=== PATIENT | female | born 1980 | race Caucasian/White ===

== ENCOUNTER 2024-03-29 10:53 | Observation (INO) | payer OTHER, SELFPAY ==
[2024-03-29] VITALS (17 sets, daily range): BP systolic 167–210; BP diastolic 78–116; PULSE 65–95; RESP 16–18; TEMP 36.6–37.1; O2SAT 81–100; BMI 29.2
--- NOTE | 2024-03-29 11:23 | EKG_ITS ---
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
[2024-03-29] MEDS: ONDANSETRON 4 MG/2 ML INJ IV ×4 (11:27→20:53)
[2024-03-29 11:34] LABS: Add Manual Diff / Slide Review NO; Basophils Absolute Auto 100 /uL (0-100); Basophils Percent Auto 0.3 % (0-2); Eosinophils Absolute Auto 0 /uL (0-450); Eosinophils Percent Auto 0.1 % (2-4); Hematocrit 43.7 % (36-46); Hemoglobin 15.7 g/dL (12.0-16.0); Lymphocytes Absolute Auto 1200 /uL (1100-4500); Lymphocytes Percent Auto 7.1 % (25-40); Mean Corpuscular HGB Conc 35.9 % (30-36); Mean Corpuscular Volume 89.3 fL (80-100); Monocytes Absolute Auto 900 /uL (0-900); Monocytes Percent Auto 5.1 % (3-14); Neutrophils Absolute Auto 15300 /uL (1500-7000); Neutrophils Percent Auto 87.4 % (50-75); Platelet Count 252 X10^3/uL (150-400); Red Cell Distribution Width 12.6 % (11.6-14.8); White Blood Cell Count 17.5 X10^3/uL (4.5-11.0)
[2024-03-29 11:45] LABS: Alanine Aminotransferase 24 IU/L (<35); Albumin 4.5 g/dL (3.5-5.0); Albumin Globulin Ratio 1.3 (1.0-2.8); Alkaline Phosphatase 78 U/L (38-126); Aspartate Aminotransferase 28 IU/L (14-36); Bilirubin Total 0.7 mg/dL (0.2-1.3); Blood Urea Nitrogen 12 mg/dL (7-17); Calcium 9.6 mg/dL (8.4-10.2); Carbon Dioxide 24 mmol/L (22-32); Chloride 101 mmol/L (98-107); Estimated Glomerular Filt Rate > 60 mL/min (>60); Globulin 3.5 g/dL (1.7-4.1); Glucose 109 mg/dL (70-100); HEMOLYSIS < 15 (0-50); Lipase 61 U/L (23-300); Sodium 134 mmol/L (137-145)
[2024-03-29 12:44] LABS: Urine Volume 10mL (spun)
[2024-03-29 12:47] LABS: Bacteria Urine None Seen; Culture Indicated Urine Cult Not Indicated; RBC Urine 1-5/HPF (0-5/HPF); Squamous Epithelial Cell Urine 0-1 /HPF (0-5/HPF); WBC Urine 0-1/HPF (0-5/HPF)
--- NOTE | 2024-03-29 13:47 | ED.GENADULT ---
HPI - General Adult General Chief complaint: Abdominal Pain Stated complaint: Left Upper Stomach pain Time Seen by Provider: 03/29/24 13:05 Source: patient and family Mode of arrival: Wheelchair History of Present Illness HPI narrative: 43-year-old woman who was born with ambiguous genitalia has chosen to be a woman is on estrogen and progesterone, does not have reproductive organs, ADD and autism presents with severe abdominal pain that is started around midnight last night. She lives on [facility]. Came over this morning and is complaining that movement, deep breathing is quite painful. She has not been able to keep any water down there has been no blood in her vomitus. She has not having diarrhea but is passing gas. She has not complaining of chest pain or palpitations. No headache and not noting fevers Related Data Home Medications Medication Instructions Recorded Confirmed dextroamphetamine-amphetamine 5 mg mg PO BID 03/29/24 tablet (Adderall) estradiol 1 mg-progesterone 100 mg 1 cap PO QPM 03/29/24 03/29/24 capsule estradiol 4 mcg vaginal insert, in 4 mcg vaginal BID 03/29/24 03/29/24 a starter dose pack loratadine 5 mg-pseudoephedrine ER 1 tab PO Q12H 03/29/24 03/29/24 120 mg tablet,extended release,12hr (Claritin-D 12 Hour) Allergies Allergy/AdvReac Type Severity Reaction Status Date / Time codeine Allergy Rash Verified 03/29/24 11:12 Histamine H2 Inhibitors AdvReac Verified 03/29/24 11:12 Review of Systems Review of Systems Narrative: Pertinent positive and negative findings as per HPI Patient History Social History Smoking Status: Never smoker Smoking Status: Never smoker alcohol intake frequency: other Substance Use Type: marijuana Exam Initial Vital Signs Initial Vital Signs: Vital Signs Temperature 98 F 03/29/24 11:00 Pulse Rate 94 H 03/29/24 11:00 Respiratory Rate 17 03/29/24 11:00 Blood Pressure 200/115 H 03/29/24 11:00 Pulse Oximetry 100 03/29/24 11:00 Oxygen Delivery Method Room Air 03/29/24 11:00 General: Significant abdominal pain but Able to give a complete and coherent history. Well-nourished well-developed HEENT: Moist mucous membranes, normal sclera with reactive pupils, Respiratory: Lungs are clear to auscultation, no wheezing no rales no rhonchi. Full and symmetrical air movement Cardiac: Regular rate and rhythm no murmurs no bruits Abdomen: Soft, she is having waves of severe pain however she does not have rebound or guarding and palpation is minimally painful for her Skin: Pale, Warm and dry, no rashes Neurologic: Grossly neurologically intact with no obvious asymmetries or abnormalities Extremities: No trauma, well perfused Psych: Cooperative, appropriate insight and affect Course Orders Ordered: ED Orders 03/29/24 11:15 EKG-12 Lead Stat 03/29/24 11:24 Complete Blood Count AUTO DIFF Stat Comprehensive Metabolic Panel Stat Lipase Stat 03/29/24 12:02 Urine Microscopic Stat 03/29/24 14:00 CT abdomen pelvis w con Stat Hydromorphone HCl (Hydromorphone 0.5 Mg Inj) 0.5 mg IV Q15MIN PRN PRN Reason: Pain, Last Admin: 03/29/24 16:43 Dose: 0.5 mg Documented By: FABBY Ondansetron HCl (Ondansetron 4 Mg/2 Ml Inj) 4 mg IV NOW PRN PRN Reason: Nausea And Vomiting Last Admin: 03/29/24 11:27 Dose: 4 mg Documented By: JAIRO Ondansetron HCl (Ondansetron 4 Mg Odt) 4 mg PO NOW PRN PRN Reason: Nausea And Vomiting Discontinued Medications Hydromorphone HCl (Hydromorphone 1 Mg Inj) 1 mg IV NOW ONE Stop: 03/29/24 14:01 Last Admin: 03/29/24 14:11 Dose: 1 mg Documented By: FABBY Sodium Chloride (Normal Saline 0.9%) 1,000 mls @ 1,000 mls/hr IV BOLUS ONE Stop: 03/29/24 14:59 Last Infusion: 03/29/24 15:22 Dose: Infused Documented By: Admin: 03/29/24 14:13 Dose: 1,000 mls/hr Documented By: FABBY Ondansetron HCl (Ondansetron 4 Mg/2 Ml Inj) 4 mg IV NOW ONE Stop: 03/29/24 14:01 Last Admin: 03/29/24 14:12 Dose: 4 mg Documented By: FABBY Vital Signs Vital signs: Vital Signs - 8 hr 03/29/24 11:00 03/29/24 12:37 03/29/24 12:38 Temperature 98 F Pulse Rate 94 H 74 73 Respiratory Rate 17 Blood Pressure 200/115 H Pulse Oximetry 100 100 100 Oxygen Delivery Method Room Air 03/29/24 12:38 03/29/24 13:00 03/29/24 13:00 Temperature Pulse Rate 79 Respiratory Rate Blood Pressure 204/103 H 210/115 H Pulse Oximetry 99 Oxygen Delivery Method 03/29/24 13:30 03/29/24 13:30 03/29/24 14:00 Temperature Pulse Rate 65 94 H Respiratory Rate Blood Pressure 194/116 H Pulse Oximetry 96 100 Oxygen Delivery Method 03/29/24 14:00 03/29/24 14:15 03/29/24 14:15 Temperature Pulse Rate 85 Respiratory Rate Blood Pressure 190/100 H 185/98 H Pulse Oximetry 81 L Oxygen Delivery Method 03/29/24 14:30 03/29/24 14:30 03/29/24 15:00 Temperature Pulse Rate 81 79 Respiratory Rate Blood Pressure 182/100 H Pulse Oximetry 95 97 Oxygen Delivery Method 03/29/24 15:00 Temperature Pulse Rate Respiratory Rate Blood Pressure 190/108 H Pulse Oximetry Oxygen Delivery Method Medical Decision Making Lab Data 03/29/24 11:24 03/29/24 11:24 Labs: Lab Results 03/29/24 03/29/24 Range/Units 11:24 12:02 WBC 17.5 H (4.5-11.0) X10^3/uL RBC 4.90 (4.0-5.2) X10^6/uL Hgb 15.7 (12.0-16.0) g/dL Hct 43.7 (36-46) % MCV 89.3 (80-100) fL MCH 32.0 (26-34) PG MCHC 35.9 (30-36) % RDW 12.6 (11.6-14.8) % Plt Count 252 (150-400) X10^3/uL Neut % (Auto) 87.4 H (50-75) % Lymph % (Auto) 7.1 L (25-40) % [place] % (Auto) 5.1 (3-14) % Eos % (Auto) 0.1 L (2-4) % Baso % (Auto) 0.3 (0-2) % Neut # (Auto) 50190 H (3848-9330) /uL Lymph # (Auto) 1200 (8168-7837) /uL [place] # (Auto) 900 (0-900) /uL Eos # (Auto) 0 (0-450) /uL Baso # (Auto) 100 (0-100) /uL Sodium 134 L (137-145) mmol/L Potassium 4.0 (3.4-5.1) mmol/L Chloride 101 (98-107) mmol/L Carbon Dioxide 24 (22-32) mmol/L BUN 12 (7-17) mg/dL Creatinine 0.63 (0.52-1.04) mg/dL Estimated GFR > 60 (>60) mL/min BUN/Creatinine Ratio 19.0 (6-22) Glucose 109 H (70-100) mg/dL Calcium 9.6 (8.4-10.2) mg/dL Total Bilirubin 0.7 (0.2-1.3) mg/dL AST 28 (14-36) IU/L ALT 24 (<35) IU/L Alkaline Phosphatase 78 (38-126) U/L Total Protein 8.0 (6.3-8.2) g/dL Albumin 4.5 (3.5-5.0) g/dL Globulin 3.5 (1.7-4.1) g/dL Albumin/Globulin Ratio 1.3 (1.0-2.8) Lipase 61 (23-300) U/L Urine RBC 1-5/hpf (0-5/HPF) Urine WBC 0-1/hpf (0-5/HPF) Ur Squamous Epith Cells 0-1 /hpf (0-5/HPF) Urine Bacteria None seen (None) Ur Culture Indicated? Cult not indicated Vol Urine Centrifuged 10ml (spun) Point of Care Testing Test Results Negative Urine Dip Bedside Urine Glucose Negative Bedside Urine Bilirubin - Negative Bedside Urine Ketone +/- 5 Urine Specific [place] 1.015 Bedside Urine Occult Blood +/- Bedside Urine pH 6.0 Bedside Urine Protein ++ 100 Bedside Urine Urobilinogen - Negative Bedside Urine Nitrite - Negative Bedside Urine Leukocytes - Negative Esterase Point of care testing: Point of Care Testing Test Results Negative Urine Dip Bedside Urine Glucose Negative Bedside Urine Bilirubin - Negative Bedside Urine Ketone +/- 5 Urine Specific [place] 1.015 Bedside Urine Occult Blood +/- Bedside Urine pH 6.0 Bedside Urine Protein ++ 100 Bedside Urine Urobilinogen - Negative Bedside Urine Nitrite - Negative Bedside Urine Leukocytes - Negative Esterase Imaging Data CT scan - abdomen/pelvis: Radiologist's Impression: PROCEDURE: CT ABDOMEN PELVIS W CON INDICATIONS: abdominal pain and leukocytosis TECHNIQUE: After the administration of intravenous contrast, axial sections acquired from the lung bases to the pubic symphysis. Coronal and sagittal reformats were performed. For radiation dose reduction, the following was used: automated exposure control, adjustment of mA and/or kV according to patient size. COMPARISON: None. FINDINGS: Image quality: Diagnostic. Lower Chest: 3 mm solid nodule in the lateral right lower lobe (series 3, image 9). ABDOMEN: Liver: No solid mass. Gallbladder: Cholelithiasis. Focal wall thickening period pericolonic fat stranding and fluid. Biliary ducts: No biliary dilation. Pancreas: No ductal dilation. Spleen: Size is within normal limits. Adrenal Glands: No adrenal nodules. Kidneys and Ureters: No hydronephrosis. No solid mass. No complex renal cystic lesion which requires follow up. Stomach and Bowel: Normal colonic caliber, without significant wall thickening. Peritoneum: No abnormal intraperitoneal fluid. No free air. Ventral Wall: No significant ventral hernia. Abdominal Nodes: No retroperitoneal or mesenteric adenopathy by size criteria. Vessels: Aorta and inferior vena cava are normal in size. PELVIS: Pelvic Organs: Unremarkable. Bladder: No bladder wall thickening, accounting for underdistention. Pelvic Nodes: No enlarged lymph nodes. Miscellaneous: No inguinal hernias are seen. Bones: No aggressive osseous abnormality. Moderate disc bulge at L4-5, without significant spinal canal narrowing. IMPRESSION: Acute cholecystitis. No evidence of choledocholithiasis. 3 mm solid nodule in the lateral right lower lobe. Consider 12 month follow-up if this patient is at high risk for developing lung cancer. Dictated by: Duc Garza M.D. on 03/29/2024 at 15:25 MDM Narrative Medical decision making narrative: CC: Abdominal pain increasing since midnight last night Complicating co-morbidities: No reproductive organs, on hormone replacement therapy, has never had abdominal surgeries Data collected from: patient, Social determinants of health that may influence the patients condition: Lives on [facility] Differential considered: Gallbladder disease, perforated viscus, ruptured appendix, diverticulitis given lack of uterus ovaries and vagina not concerned with obstetrics and gynecology professor etiology Exam documented above, pertinent findings include: Significant pain behaviors in waves, bili is actually moderately soft and pain is not reproduced with palpation Lab Test results independently reviewed as above. Pertinent findings: CBC shows leukocytosis at 17.5 with 87.4 neutrophils. No anemia Chemistries are unremarkable Independently reviewed EKG: Sinus rhythm at a rate of 85. Nonspecific STT wave changes. She does have a right bundle branch block Imaging studies independently reviewed: CT scan suggests acute cholecystitis without choledocholithiasis Consultations: Dr. Obregon, general surgery Treatments: Fluids, Dilaudid, Zofran Discussion: 43-year-old woman with a week of mild intermittent upper abdominal symptoms and since midnight last night has had severe abdominal pain coming in waves. Mild leukocytosis at 17.5 87% neutrophils, CT scan suggest acute cholecystitis without choledocholithiasis. In discussion with Dr. Obregon, she will be started on Zosyn, admitted to the hospital with anticipation of surgical intervention tomorrow. Findings reviewed with the patient and her , they understand, agree and questions have been answered Discharge Plan Departure Patient Disposition: Admitted as Observation Clinical Impression: Cholecystitis Prescriptions: No Action Claritin-D 12 Hour 5-120 mg Tablet Extended Release 12 Hr 1 tab PO Q12H dextroamphetamine-amphetamine [Adderall] 5 mg Tablet PO BID Rx Instructions: administer doses at least 4-6 hours apart estradiol 4 mcg Insert, Dose Pack 4 mcg VAGINAL BID estradiol-progesterone 1-100 mg Capsule 1 cap PO QPM
--- NOTE | 2024-03-29 14:00 | DI.CT.S_ITS ---
PROCEDURE: CT ABDOMEN PELVIS W CON INDICATIONS: abdominal pain and leukocytosis TECHNIQUE: After the administration of intravenous contrast, axial sections acquired from the lung bases to the pubic symphysis. Coronal and sagittal reformats were performed. For radiation dose reduction, the following was used: automated exposure control, adjustment of mA and/or kV according to patient size. COMPARISON: None. FINDINGS: Image quality: Diagnostic. Lower Chest: 3 mm solid nodule in the lateral right lower lobe (series 3, image 9). ABDOMEN: Liver: No solid mass. Gallbladder: Cholelithiasis. Focal wall thickening period pericolonic fat stranding and fluid. Biliary ducts: No biliary dilation. Pancreas: No ductal dilation. Spleen: Size is within normal limits. Adrenal Glands: No adrenal nodules. Kidneys and Ureters: No hydronephrosis. No solid mass. No complex renal cystic lesion which requires follow up. Stomach and Bowel: Normal colonic caliber, without significant wall thickening. Peritoneum: No abnormal intraperitoneal fluid. No free air. Ventral Wall: No significant ventral hernia. Abdominal Nodes: No retroperitoneal or mesenteric adenopathy by size criteria. Vessels: Aorta and inferior vena cava are normal in size. PELVIS: Pelvic Organs: Unremarkable. Bladder: No bladder wall thickening, accounting for underdistention. Pelvic Nodes: No enlarged lymph nodes. Miscellaneous: No inguinal hernias are seen. Bones: No aggressive osseous abnormality. Moderate disc bulge at L4-5, without significant spinal canal narrowing. IMPRESSION: Acute cholecystitis. No evidence of choledocholithiasis. 3 mm solid nodule in the lateral right lower lobe. Consider 12 month follow-up if this patient is at high risk for developing lung cancer. Dictated by: Duc Garza M.D. on 03/29/2024 at 15:25 Approved by: Duc Garza M.D. on 03/29/2024 at 15:27
[2024-03-29] MEDS: HYDROMORPHONE 1 MG INJ IV (14:11)
[2024-03-29] MEDS: SODIUM CHLORIDE 0.9% 1,000 ML 1000 ML IV (14:13)
[2024-03-29] MEDS: HYDROMORPHONE 0.5 MG INJ IV ×2 (16:43→21:00)
[2024-03-29] MEDS: SODIUM CHLORIDE 0.9% 1,000 ML 100 ML IV (17:53)
[2024-03-29] MEDS: PIPERACILLIN/TAZO 4.5 GM in SODIUM CHLORIDE 0.9% 100 ML IV (17:53)
[2024-03-29] MEDS: PIPERACILLIN/TAZO 3.375 GM in SODIUM CHLORIDE 0.9% 100 ML IV (22:57)
[2024-03-30] VITALS (9 sets, daily range): BP systolic 148–183; BP diastolic 84–109; PULSE 70–98; RESP 12–19; TEMP 36.5–37.7; O2SAT 95–99
[2024-03-30 06:28] LABS: Add Manual Diff / Slide Review NO; Basophils Absolute Auto 0 /uL (0-100); Basophils Percent Auto 0.2 % (0-2); Eosinophils Absolute Auto 100 /uL (0-450); Eosinophils Percent Auto 0.9 % (2-4); Hematocrit 38.6 % (36-46); Hemoglobin 13.7 g/dL (12.0-16.0); Lymphocytes Absolute Auto 1300 /uL (1100-4500); Lymphocytes Percent Auto 11.2 % (25-40); Mean Corpuscular HGB Conc 35.5 % (30-36); Mean Corpuscular Hemoglobin 31.9 PG (26-34); Monocytes Absolute Auto 1000 /uL (0-900); Monocytes Percent Auto 8.9 % (3-14); Neutrophils Absolute Auto 8800 /uL (1500-7000); Neutrophils Percent Auto 78.8 % (50-75); Platelet Count 188 X10^3/uL (150-400); Red Blood Cell Count 4.29 X10^6/uL (4.0-5.2); Red Cell Distribution Width 12.8 % (11.6-14.8); White Blood Cell Count 11.2 X10^3/uL (4.5-11.0)
[2024-03-30] MEDS: SODIUM CHLORIDE 0.9% 1,000 ML 100 ML IV (06:36)
[2024-03-30] MEDS: PIPERACILLIN/TAZO 3.375 GM in SODIUM CHLORIDE 0.9% 100 ML IV (06:37)
[2024-03-30 06:52] LABS: Alanine Aminotransferase 18 IU/L (<35); Albumin 3.5 g/dL (3.5-5.0); Albumin Globulin Ratio 1.2 (1.0-2.8); Alkaline Phosphatase 55 U/L (38-126); Aspartate Aminotransferase 22 IU/L (14-36); BUN Creatinine Ratio 11.8 (6-22); Bilirubin Total 0.6 mg/dL (0.2-1.3); Blood Urea Nitrogen 9 mg/dL (7-17); Calcium 8.5 mg/dL (8.4-10.2); Carbon Dioxide 27 mmol/L (22-32); Chloride 106 mmol/L (98-107); Estimated Glomerular Filt Rate > 60 mL/min (>60); Globulin 2.9 g/dL (1.7-4.1); Glucose 103 mg/dL (70-100); HEMOLYSIS < 15 (0-50); Potassium 3.8 mmol/L (3.4-5.1); Sodium 135 mmol/L (137-145); Total Protein 6.4 g/dL (6.3-8.2)
[2024-03-30] MEDS: HYDROMORPHONE 0.5 MG INJ IV ×3 (09:03→22:06)
--- NOTE | 2024-03-30 09:36 | PM.HP.1 ---
History of Present Illness History of Present Illness Date Patient Seen: 03/30/24 Time Patient Seen: 09:36 Chief complaint: Left Upper Stomach pain Narrative: Cameron is a 43 year old woman from [facility] who presented to the emergency department yesterday several hours of severe epigastric abdominal pain. She has had similar pain in the past but never as severe as this episode. Her abdominal pain was initially triggered by fatty foods but more recently any type of food would trigger her symptoms. She presented with leukocytosis. A CT scan demonstrated acute cholecystitis. There is a definite calcified gallstone within the gallbladder lumen. Her only prior abdominal surgery was inter-sex surgery for ambiguous genitalia 6 years ago. [facility] Social History household members: significant other Smoking Status: Never smoker alcohol intake: current Meds Home Medications and Allergies Home Medications Medication Instructions Recorded Confirmed Type dextroamphetamine-amphetamine 5 mg 5 mg PO BID 03/29/24 03/29/24 History tablet (Adderall) estradiol 1 mg-progesterone 100 mg 1 cap PO QPM 03/29/24 03/29/24 History capsule estradiol 4 mcg vaginal insert, in 4 mcg vaginal BID 03/29/24 03/29/24 History a starter dose pack loratadine 5 mg-pseudoephedrine ER 1 tab PO Q12H 03/29/24 03/29/24 History 120 mg tablet,extended release,12hr (Claritin-D 12 Hour) Allergies Allergy/AdvReac Type Severity Reaction Status Date / Time codeine Allergy Rash Verified 03/29/24 11:12 Histamine H2 Inhibitors AdvReac Verified 03/29/24 11:12 Exam Vital Signs (past 8 hours): - 03/30/24 08:38 Temperature 98.0 F Pulse Rate 70 Respiratory Rate 18 Blood Pressure 148/84 H Pulse Oximetry 96 Oxygen Flow Rate 0 Oxygen Delivery Method Room Air Oxygen Flow Rate 0 Narrative Exam Narrative: Tender to palpation in the right upper quadrant and epigastrium Objective Labs 03/30/24 06:05 03/30/24 06:05 Labs: Laboratory Results - last 24 hr 03/29/24 03/29/24 03/30/24 11:24 12:02 06:05 WBC 17.5 H 11.2 H RBC 4.90 4.29 Hgb 15.7 13.7 Hct 43.7 38.6 MCV 89.3 90.0 MCH 32.0 31.9 MCHC 35.9 35.5 RDW 12.6 12.8 Plt Count 252 188 Neut % (Auto) 87.4 H 78.8 H Lymph % (Auto) 7.1 L 11.2 L [place] % (Auto) 5.1 8.9 Eos % (Auto) 0.1 L 0.9 L Baso % (Auto) 0.3 0.2 Neut # (Auto) 13761 H 8800 H Lymph # (Auto) 1200 1300 [place] # (Auto) 900 1000 H Eos # (Auto) 0 100 Baso # (Auto) 100 0 Sodium 134 L 135 L Potassium 4.0 3.8 Chloride 101 106 Carbon Dioxide 24 27 BUN 12 9 Creatinine 0.63 0.76 Estimated GFR > 60 > 60 BUN/Creatinine Ratio 19.0 11.8 Glucose 109 H 103 H Calcium 9.6 8.5 Total Bilirubin 0.7 0.6 AST 28 22 ALT 24 18 Alkaline Phosphatase 78 55 Total Protein 8.0 6.4 Albumin 4.5 3.5 Globulin 3.5 2.9 Albumin/Globulin Ratio 1.3 1.2 Lipase 61 Urine RBC 1-5/hpf Urine WBC 0-1/hpf Ur Squamous Epith Cells 0-1 /hpf Urine Bacteria None seen Ur Culture Indicated? Cult not indicated Vol Urine Centrifuged 10ml (spun) Assessment & Plan Assessment and plan (1) Acute cholecystitis: Status: Acute Plan 43-year-old woman with acute cholecystitis. Recommend laparoscopic cholecystectomy today. I discussed possibility of drain placement if inflammation is severe. Low possibility of open cholecystectomy. She would like to proceed. Time-Based Coding :: [TOTAL MINUTES] spent with patient and on the chart (including review of chart, obtaining history, exam, reviewing outside data, placing orders, documenting exam and treatment plan, and counseling patient) on [DATE]. Quality VTE Deep Vein Thrombosis/Pulmonary Embolism Present on Admission: No
--- NOTE | 2024-03-30 15:04 | SUR.OPER ---
Supine on padded OR bed, head on pillow, arms secured on padded arm boards at <90 degrees abduction, legs uncrossed, safety belt at thigh, tape over blanket over lower legs.
--- NOTE | 2024-03-30 15:16 | CM.DANOTE ---
Initial DCP Assessment Note Reviewed EMR and team rounds for status updates. Went to meet with pt in the room, however she had already been taken down to surgery. Pt resides independently in her own home with her on [facility]. Her will transport her home once she's medically cleared for home d/c, expected for Wednesday, 03/31. No CM needs are anticipated at this time. Payor: [facility] Attending: Dr. Obregon Pt is a 43 year-old F who presented tot he ED last evening with worsening left-upper quadrant abdominal pain. CT abd/pelvis showed acuate cholecystitis. Surgery was consulted, and the plan was made to start her on IV antibiotics, made NPO, and was admitted to the floor for planned lap cholecystectomy for today. DCP will continue to follow for any further evolving needs prior to her departure. She may need a Medical Priority Boarding [place] if they are unable to obtain a reservation home. 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 No History Provided By Medical Record Expected Length of Stay 2 Has Patient been admitted in last 30 No days? Prior Living Arrangements House Household Members significant other Type of transporation used prior to Drives own vehicle admit Independent with ADL's Yes Is patient alert and oriented? Yes Caregiver for Another No Comment No identified home d/c needs at this time. Barriers to Discharge No Discharge Plan Home Transportation Arrangement Spouse Referrals Initiated None needed Review Status In Process Please Provide Date Initial DC 03/30/24 Assessment Was Performed
--- NOTE | 2024-03-30 16:26 | P.OP_ITS ---
Operative Date/Time/Diagnoses Date of procedure: 03/30/24 Time of procedure: 16:26 Pre-op diagnosis: Acute cholecystitis Post-op diagnosis: same Procedure & Clinicians Procedure: Laparoscopic cholecystectomy Same procedure as scheduled: Yes Surgeon: Vel Obregon Anesthesia Type: General Operative Notes Procedure in detail: The patient was given preoperative antibiotics. The patient was brought to the operating room and placed on the table in the supine position. General endotracheal anesthesia was induced. The abdomen was prepped and draped. A time-out was performed. We made a 1 cm infraumbilical incision. We dissected down to the base of the umbilical stalk using cautery. We grasped the umbilical stalk with a Anselmo clamp to elevate the abdominal wall. We scored the fascia in the midline with cautery. We pierced the peritoneum with a Peon clamp. The Reta port was placed and the abdomen was insufflated to 15 mmHg. A 5 mm 30 degree laparoscopic was inserted. There was no evidence of any injury from the entry. Next, we placed 5 mm ports in the subxiphoid position and right upper quadrant at the midclavicular line and anterior axillary line. The patient was then positioned in reverse Trendelenburg and the table was tilted to the left. The gallbladder was grasped at the dome and retracted cephalad. The gallbladder was quite inflamed but there was no gangrene or purulence. We then dissected the cystic structures with a combination of hook cautery and blunt dissection. We obtained a critical view. We placed clips on the cystic duct and artery and divided the cystic duct and artery sharply between the clips. The gallbladder w as then dissected off the liver and placed in a specimen retrieval bag. We irrigated the right upper quadrant and all the aspirate returned clear. We then removed the 5 mm ports under direct vision we removed the Reta port. We then injected some local into the fascia and closed the fascia with 2 interrupted 0 Vicryl sutures. The skin incisions were closed with 4-0 Monocryl and Steri- Strips were applied. Band-Aids were applied over the Steri-Strips. EBL: 30 mL Specimen: Gallbladder and contents Post-operative Condition: stable Disposition: PACU
[2024-03-30] MEDS: BUPIVACAINE 0.5% (PF) 30 ML, EPINEPHrine 0.15 MG INJ (16:32)
--- NOTE | 2024-03-30 18:51 | PC.NURSE ---
Pt arrived from PACU in bed, no c/o pain at this time VSS (BP slightly elevated, provider aware), pt needed to use bathroom at this time, attempted to use bedpan, was not able to, 2 PA to bedside commode was successful. Pt able to eat clear liquid diet, c/o pain /10 treated with dilaudid, reduction in pain achieved. Family at bedside, plan to spend the night. No further pt needs at this time.
[2024-03-30] MEDS: HYDROCODONE/ACET 5/325 TABLET 1 TAB PO (20:02)
[2024-03-30] MEDS: SODIUM CHLORIDE 0.9% FLUSH 10 ML IV (22:10)
[2024-03-31 02:19] VITALS: BP 159/83; PULSE 81; RESP 14; TEMP 37.2; O2SAT 95
[2024-03-31] MEDS: HYDROCODONE/ACET 5/325 TABLET 1 TAB PO (06:14)
[2024-03-31 08:00] VITALS: BP 155/83; PULSE 73; RESP 16; O2SAT 96
[2024-03-31] MEDS: IBUPROFEN 600 MG TABLET PO ×2 (09:19→14:51)
[2024-03-31] MEDS: SODIUM CHLORIDE 0.9% FLUSH 10 ML IV (09:21)
--- NOTE | 2024-03-31 12:14 | CM.DPNOTE ---
DCP Continued: Reviewed EMR and team rounds for pt?s medical status. Pt has a discharge order in, no other needs identified from EMR. DCP entered room, introduced self and role. Pt identified request for [facility] Medical Preferential Load Program due to pain while sitting in car for extended periods of time. DCP completed request for Medical Preferential Load Program (added pt email: [email or web address] provided paper copy to patient. Plan: Anticipating discharge home with family when medically cleared, will utilize Medical Preferential Load Program for [facility]. CM Team will continue to follow for coordination of discharge plans. TIM Medina
--- NOTE | 2024-03-31 17:40 | PC.NURSE ---
Discharge: Pt feels ready to d/c to home. unable to come prior to d/c. Dr. Babcock gave pt the choice to leave or stay until he finished and could come up to see her. Pt would like to go home. Ibuprofen has been effective for pain. Has been up and walking in the hallway. 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 When PCT Hector takes her to her car. She is tolerating clear liquids with/out problems. Vds w/out diff. No nausea. Discharge packet given and reviewed. Questions answered. Pt d/c to home with spouse.
--- NOTE | 2024-04-03 | PATH_ITS ---
[facility] Accession Number: [id number] No. of containers..01 Tissue . 01 Material submitted: . gallbladder - GALLBLADDER . 01 Diagnosis: GALLBLADDER, CHOLECYSTECTOMY: Chronic cholecystitis with cholelithiasis. Negative for dysplasia and malignancy. [facility] 04/05/2024 1027 Local . 01 Electronically signed: . Elisabeth Jimenez MD, Pathologist NPI- [id number] . 01 Gross description: . Received in formalin with two patient identifiers and gallbladder, is an intact gallbladder, 11.3 x 3.2 x 3.0 cm. The external surface is unremarkable, the cystic duct margin is inked blue, and a beal pericystic lymph node candidate is identified, 1.2 cm in greatest dimension. The lumen contains multiple orange to brown faceted calculi, up to 0.9 cm in greatest dimension grossly obstructing the cystic duct and admixed with clear mucoid bile, as well as orange semisolid material. The mucosa is beal and approximately 80% trabecular with no yellow discoloration, polyps, or lesions identified. The robison average 0.5 cm thick with no lesions identified. Supervisor Landscape sections to include the cystic duct margin, one-half of the bisected lymph node candidate, and full thickness sections are submitted in A1. ([id number]) /MRV 04/04/2024 1826 Local . 01 Pathologist provided ICD-10: K80.60 . 01 CPT . 291799 Specimen Comment: A courtesy copy of this report has been sent to [phone] Performed at: [address] [facility], [place], [place] [id number] MD Richie Chavarria MD Phone: [phone]
--- NOTE | 2024-04-07 04:47 | PC.NURSE ---
Late entry: Piperacillin was ended at 22:00 on 03/30/24.
== END 2024-03-31 15:00 | disposition home or self-care (01) ==
LOC: ED 16:56 → AC 16:56
PROVIDERS: Admitting Provider Surgery; Emergency Provider Emergency Medicine; Referring Provider Emergency Medicine; Visit Provider Surgery
PROC: 0FT44ZZ Resection of Gallbladder, Percutaneous Endoscopic Approach (ICD-10-PCS; CPT 47562; principal; 2024-03-30 15:00)
DX: K81.0 Acute cholecystitis (principal)
CPT/HCPCS: 47562; 36415; 74177; 80053; 81003; 81015; 81025; 83690; 85025; 93005; 93010; 96361; 96365; 96366; 96375; 96376; 99222; 99284; G0378; J0171; J1100; J1171; J1885; J2250; J2405; J2543; J2704; J3010; Q9967